=== PATIENT | male | born 1965 | race African-American/Black ===

== ENCOUNTER 2021-03-23 22:48 | Emergency (ER) | payer OTHER ==
[~2021-03-23] VITALS: Ht 172.7 cm; Wt 81.6 kg
--- NOTE | 2021-03-23 23:08 | NUR ---
PATIENT BIB [id number] ACCOMPANIED BY DONG TO BE MEDICALLY CLEARED TO BE BOOKED. PATIENT REFUSING TO ANSWER ANY QUESTIONS FROM ER STAFF MEMBER,MICKI UMANA. NO DISTRESS NOTED.
--- NOTE | 2021-03-23 23:11 | NUR ---
MEDICALLY CLEARED BY DR DESHPANDE TO BE BOOK BY DONG.
--- NOTE | 2021-03-23 23:16 | NUR ---
PATIENT DISCAHRGED UNDER [employer] CUSTODY. TAKEN BY OFFICER YARA #[id number] TO BE BOOKED.
== END 2021-03-23 23:18 | disposition left against medical advice (07) ==
LOC: ER 22:48
DX: Z02.89 Encounter for other administrative examinations (principal); R11.10 Vomiting, unspecified; Z53.29 Procedure and treatment not carried out because of patient's decision for other reasons
CPT/HCPCS: A4663